=== PATIENT | male | born 1950 | race Caucasian/White ===

== ENCOUNTER 2020-12-11 07:40 | Day surgery (SDC) | payer MEDICARE ==
[~2020-12-11] VITALS: Ht 172.7 cm; Wt 83.9 kg
[2020-12-11] VITALS (22 sets, daily range): BP systolic 125–163; BP diastolic 76–100
[~2020-12-11 07:40] MED LIST: NO HOME MEDS; cefazolin/dext.iso 2gm/100ml IV ONE; famotidine 20mg tablet PO ONE; ringers solution, lacted 1,000 ML IV SCH
[2020-12-11] MEDS ORDERED: LIDOcaine 1% 30ml preserv. free vial ONE (10:57)
[2020-12-11] MEDS ORDERED: BUPIVAcaine 0.5% inj/PF 30 ML ONE (10:57)
[2020-12-11] MEDS ORDERED: dexamethasone sod phosphate 10mg/ml inj ONE (11:34)
[2020-12-11] MEDS ORDERED: ondansetron/PF 4mg/2ml inj ONE (11:34)
[2020-12-11] MEDS ORDERED: sevoflurane 250ml liquid IH ONE (11:34)
[2020-12-11] MEDS ORDERED: fentaNYL/PF 50MCG/1 ML 2ML syringe ONE (11:35)
[2020-12-11] MEDS ORDERED: midazolam 1 mg/ML 2ml injection ONE (11:36)
[2020-12-11] MEDS ORDERED: ondansetron/PF 4mg/2ml inj IV PRN (12:25)
[2020-12-11] MEDS ORDERED: ringers solution, lacted 1,000 ML IV SCH (12:25)
[2020-12-11] MEDS ORDERED: morphine 2 MG/ML inj. syringe IV PRN (12:25)
[2020-12-11] MEDS ORDERED: morphine 4 MG/ML inj SYRINge IV PRN (12:25)
[2020-12-11] MEDS ORDERED: meperidine/PF 25mg/ml syringe IV PRN ×2 (12:25)
[2020-12-11] MEDS ORDERED: proCHLORperazine 10 MG/2 ml inj IV PRN (12:25)
[2020-12-11] MEDS ORDERED: neostigmine methylsulfate 1 MG/ML 10ml vial ONE (12:52)
[2020-12-11] MEDS ORDERED: propofol inj 20 ML IV ONE (12:52)
[2020-12-11] MEDS ORDERED: rocuronium 10mg/ml inj IV ONE (12:52)
[2020-12-11] MEDS ORDERED: glycopyrrolate 0.2mg/ml inj ONE (12:53)
--- NOTE | 2020-12-11 13:06 | NUR ---
Received from OR via ANY, accompanied by Anesthesiologist DR GILMORE and report given by Anesthesiologist. PT DROWSY, NO S/S OF DISTRESS/DISCOMFORT. ABDOMEN W/3 LAP SITES W/BANDAIDS CDI. Addendum: 12/11/20 at 1324 by Leatha Benavides RN Amended: Links added.
[2020-12-11] MEDS ORDERED: HYDROcodone/acetaminophen 5mg/325mg tablet PO PRN (13:25)
[2020-12-11] MEDS: meperidine/PF 25mg/ml syringe IV PRN ×2 (15:08→15:23)
--- NOTE | 2020-12-11 16:18 | NUR ---
PT UP WALKING AROUND, ATTEMPTED TO VOID BUT WAS UNABLE, BLADDER SCANNED FOR 190 ML. PT WISHES TO DRINK SOME ORAL FLUIDS AND ATTEMPT AGAIN TO VOID BEFORE PLACING A MURILLO CATHETER. Addendum: 12/11/20 at 1620 by Leatha Benavides RN Amended: Links added.
[2020-12-11] MEDS ORDERED: LIDOcaine 2% 10ml TOPICAL JELLY (Urojet) MM ONE (17:35)
--- NOTE | 2020-12-11 19:26 | NUR ---
PT ATTEMPTED VOID SEVERAL TIMES W/DRIBBLES ONLY, BLADDER SCANNED FOR 680 ML. PT AGREED TO MURILLO CATHETER PLACEMENT. 16 ANGOLAN MURILLO CATHETER PLACED W/ASEPTIC TECHNIQUE W/CLEAR YELLOW URINE RETURN OF 890 ML. PT TOLERATED PROCEDURE WELL. PT TO BATHROOM FOR [facility] LUNDY GIVEN FOR MODERATE PAIN AND RIDE HOME. D/C INSTRUCTIONS GIVEN AND GONE OVER W/PT WHO VERBALIZED UNDERSTANDING. PT D/CD TO HOME VIA W/C TO PRIVATE VEHICLE W/O INCIDENT. Addendum: 12/11/20 at 2006 by Leatha Benavides RN Amended: Links added.
== END 2020-12-11 19:26 | disposition home or self-care (01) ==
LOC: PAS 07:40
PROVIDERS: ATTEND Surgery
DX: K40.90 Unilateral inguinal hernia, without obstruction or gangrene, not specified as recurrent (principal); K42.9 Umbilical hernia without obstruction or gangrene; E78.5 Hyperlipidemia, unspecified; Z85.828 Personal history of other malignant neoplasm of skin; Z86.14 Personal history of Methicillin resistant Staphylococcus aureus infection; Z79.899 Other long term (current) drug therapy; Z98.890 Other specified postprocedural states; Z72.89 Other problems related to lifestyle; Z96.652 Presence of left artificial knee joint; Z86.19 Personal history of other infectious and parasitic diseases
CPT/HCPCS: 49585; 49650; 82948; 93005; C1781; J1100; J2001; J2175; J2250; J2405; J2704; J2710; J3010; Z7506; Z7508; Z7512; A4215; A4618; J3490; J7120